=== PATIENT | female | born 1945 | race Caucasian/White ===

== ENCOUNTER 2017-03-30 05:02 | Emergency (ER) | payer OTHER, MEDICARE ==
[~2017-03-30] VITALS: Ht 152.4 cm; Wt 58.5 kg
[2017-03-30 05:20] VITALS: BP 134/83
--- NOTE | 2017-03-30 06:27 | ED GENERAL ADULT ---
History of Present Illness General Chief Complaint: General Adult Stated Complaint: PER PT ?GAS PAINS Source: patient Exam Limitations: no limitations Vital Signs & Intake/Output Vital Signs & Intake/Output Vital Signs Date Time Temp Pulse Resp B/P B/P Pulse O2 O2 Flow FiO2 Mean Ox Delivery Rate 03/30 0633 97 Room Air 03/30 0520 97.9 94 18 134/83 95 Room Air Allergies Coded Allergies: latex (Intermediate, HIVES 03/30/17) Uncoded Allergies: DEMORAL (Intermediate, LOW BP 03/30/17) NARCOTICS (Intermediate, N/V 03/30/17) Allergy Other NONE Med Allergies DEMEROL,VERSED, TOPICAL BENZICAINE Triage Note: PT FROM HOME C/O GAS PAINS?/GERD ACTING UP PER PT. PT STATES AROUND 1700 SHE ATE DINNER AND THEN FELT RIGHT FLANK PAIN THAT IS INTERMITTENT AND NON RADIATING. PT DENIES N/V, ARM NUMBNESS/TINGLING, JAW OR BACK PAIN. PTS VSS. AFEBRILE IN TRIAGE. PT STATES RIGHT SHOULDER PAIN UNKNOWN IF ASSOCIATED WITH FLANK PAIN OR PREVIOUS ROTATOR CUFF SURGERY. PT IN NO ACUTE DISTRESS IN TRIAGE. Triage Nurses Notes Reviewed? yes Onset: Gradual Duration: day(s): Timing: recent history Injury Environment: home Severity: moderate Modifying Factors: Improves With: rest. HPI: 71 yo woman in prior good health presents with right flank pain, mild nausea, no dysuria, fever, chills, chest pain. Her symptoms began yesterday at approximately 5pm. "I take a deep breath and it hurts." She notes chronic shoulder pain. She is otherwise well. (Светлана JOSHI,Maycol Granado) Past History Travel History Traveled to [place] past 21 day No Medical History Any Pertinent Medical History? see below for history Neurological: NONE EENT: NONE Cardiovascular: NONE Respiratory: NONE Gastrointestinal: NONE Hepatic: NONE Renal: NONE Musculoskeletal: NONE Psychiatric: NONE Endocrine: NONE Surgical History Surgical History: none Psychosocial History What is your primary language Korean Tobacco Use: Quit >30 days ago Family History Hx Contributory? No (Светлана JOSHI,Maycol Granado) Review of Systems Review of Systems Constitutional: Reports: no symptoms. EENTM: Reports: no symptoms. Respiratory: Reports: no symptoms. Cardiovascular: Reports: no symptoms. GI: Reports: no symptoms. Genitourinary: Reports: no symptoms. Musculoskeletal: Reports: no symptoms. Skin: Reports: no symptoms. Neurological/Psychological: Reports: no symptoms. Hematologic/Endocrine: Reports: no symptoms. Immunologic/Allergic: Reports: no symptoms. All Other Systems: Reviewed and Negative (Светлана JOSHI,Maycol Granado) Physical Exam Physical Exam General Appearance: well developed/nourished, mild distress Head: atraumatic, normal appearance Eyes: Bilateral: normal appearance. Ears, Nose, Throat: normal pharynx, normal ENT inspection Neck: normal inspection, supple, full range of motion Respiratory: normal breath sounds, chest non-tender, no respiratory distress, quiet respiration, lungs clear Cardiovascular: regular rate/rhythm Gastrointestinal: normal bowel sounds, soft, non-tender Back: normal inspection, normal range of motion Extremities: normal inspection, normal capillary refill Neurologic/Psych: no motor/sensory deficits, awake, alert, oriented x 3 Skin: intact, normal color, warm/dry Core Measures ACS in differential dx? No CVA/TIA Diagnosis: No Sepsis Present: No Sepsis Focused Exam Completed? No (Светлана JOSHI,Maycol Granado) Progress Differential Diagnoses I considered the following diagnoses in my evaluation of the patient: \\ kidney stones, renal colic, gastroenteritis vs other. Plan of Care: Orders Procedure Date/time Status CULTURE,URINE 03/30 0645 Active URINALYSIS 03/30 0645 Active RAPID VIRAL INFLUENZA A 03/30 0507 Complete TROPONIN LEVEL 03/30 0506 Complete LIPASE 03/30 0506 Complete HEPATIC FUNCTION PANEL 03/30 0506 Complete CBC WITHOUT DIFFERENTIAL 03/30 0506 Complete BASIC METABOLIC PANEL 03/30 0506 Complete AMYLASE 03/30 0506 Complete EKG 03/30 0506 Active Laboratory Tests 03/30/17 0630: Anion Gap 15, Estimated GFR > 60, BUN/Creatinine Ratio 31.7 H, Glucose 115 H, Calcium 9.8, Total Bilirubin 0.5, Direct Bilirubin 0.2, AST 25, ALT 25, Alkaline Phosphatase 94, Troponin I < 0.01, Total Protein 8.2, Albumin 4.4, Amylase 87, Lipase 130, CBC w Diff NO MAN DIFF REQ, RBC 4.51, MCV 87.5, MCH 29.6, MCHC 33.9, RDW 13.1, MPV 6.9 L, Gran % 76.6 H, Lymphocytes % 15.0 L, Monocytes % 7.6, Eosinophils % 0.5, Basophils % 0.3, Absolute Granulocytes 8.7 H, Absolute Lymphocytes 1.7, Absolute Monocytes 0.9 H, Absolute Eosinophils 0.1, Absolute Basophils 0 Microbiology 03/30 644 URINE ROUT: Urine Culture - ORD 03/30 629 NASOPHARYN: Influenza Virus A & B Rapid Smear - COMP Diagnostic Imaging: Viewed by Me: Radiology Read, CT Scan. Discussed w/RAD: Radiology Read, CT Scan. Initial ED EKG: non specific st changes. ...nsr Hand-Off Endorsed To: Darío Chinchilla DO Endorsed Time: 0700 Pending: CT, labs, Xray (Светлана JOSHI,Maycol Granado) Departure Departure Disposition: STILL A PATIENT Condition: Stable Clinical Impression Primary Impression: Flank pain Referrals: Edwardo JOSHI,Jovany Perez (PCP/Family) Departure Forms: Customer Survey General Discharge Information (Светлана JOSHI,Maycol Granado) Departure Comments 03/30/17 71-year-old female signed out to me by Dr. Sotomayor. She had a sudden onset of right-sided flank pain. Her pain is much improved now. CT scan shows no acute findings. She does have a left adrenal density. This was related to her and she is aware of the fact that she needs to follow this up with her primary care doctor. Chest x-ray shows left-sided atelectasis. Labs are essentially unremarkable. Urinalysis is pending. (Darío Chinchilla DO) Critical Care Note Critical Care Note Critical Care Time: non-applicable (Светлана JOSHI,Maycol Granado)
[2017-03-30 06:37] LABS: ABSOLUTE BASOPHIL COUNT 0 /CUMM (0.0-0.2); ABSOLUTE EOSINOPHIL COUNT 0.1 /CUMM (0.0-0.7); ABSOLUTE GRANULOCYTE CT 8.7 /CUMM (1.4-6.5); ABSOLUTE LYMPH COUNT 1.7 /CUMM (1.2-3.4); ABSOLUTE MONOCYTE COUNT 0.9 /CUMM (0.10-0.60); BASOPHIL % 0.3 % (0.0-2.0); EOSINOPHIL % 0.5 % (0-5); GRANULOCYTE % 76.6 % (42.2-75.2); HEMATOCRIT 39.4 % (37-47); MEAN CORPUSCULAR HGB 29.6 PG (27.0-31.0); MEAN CORPUSCULAR HGB CONC 33.9 G/DL (33.0-37.0); MEAN CORPUSCULAR VOLUME 87.5 FL (81.0-99.0); MEAN PLATELET VOLUME 6.9 FL (7.4-10.4); PLATELET COUNT 343 /CUMM (130-400); RBC DISTRIBUTION WIDTH 13.1 % (11.5-14.5); RED BLOOD CELL CT 4.51 /CUMM (4.20-5.40); WHITE BLOOD CELL COUNT 11.3 /CUMM (4.8-10.8)
--- NOTE | 2017-03-30 07:00 | CT SCAN REPORT ---
EXAMINATION: CT ABDOMEN AND PELVIS WITHOUT CONTRAST CLINICAL INFORMATION: Right flank pain COMPARISON: None TECHNIQUE: Multidetector volumetric imaging was performed from the superior aspect of the liver through the pubic symphysis. Sagittal and coronal reformatted images were obtained on the technologist's workstation. DLP: 292 mGy-cm FINDINGS: LUNG BASES: The visualized lung bases are unremarkable. LIVER, GALLBLADDER, AND BILIARY TREE: The liver is normal in size, shape, and attenuation. No focal hepatic lesion or biliary ductal dilatation is present. The gallbladder is unremarkable with no evidence of radiopaque gallstones, gallbladder wall thickening, or obvious pericholecystic inflammatory changes. PANCREAS: Unremarkable. SPLEEN: Unremarkable. ADRENAL GLANDS: The right adrenal gland is unremarkable. There is a nodule in the left adrenal gland measuring 1.2 cm. This does not meet criteria for a lipid rich adenoma on this study. KIDNEYS AND URETERS: The kidneys are normal in size, shape, and attenuation. No hydronephrosis, hydroureter, or calculi seen. No perinephric stranding. BLADDER: Unremarkable. GASTROINTESTINAL TRACT: The stomach is unremarkable. The small bowel is normal in caliber. No obstruction. No colonic wall thickening or inflammatory changes. The appendix is not definitively seen, but no inflammatory changes are seen at the cecum. Mild colonic stool burden. No free air or free fluid. ABDOMINAL WALL: No significant hernia is appreciated. LYMPH NODES: Normal. VASCULAR: Normal caliber aorta with mild atherosclerotic calcifications. PELVIC VISCERA: The uterus and adnexa are unremarkable. OSSEOUS STRUCTURES: No acute or suspicious osseous abnormality. Mild multilevel degenerative changes of the spine. IMPRESSION: No acute finding of the abdomen or pelvis. No hydronephrosis or nephrolithiasis. No inflammatory changes. Mild colonic stool burden. 1.2 cm left adrenal gland nodule which is indeterminate on this study. Recommend nonemergent adrenal protocol CT to further evaluate.
--- NOTE | 2017-03-30 07:17 | RADIOLOGY REPORT ---
EXAMINATION: XR PORTABLE CHEST CLINICAL INFORMATION: Dyspnea COMPARISON: None TECHNIQUE: Portable frontal view of the chest was obtained. FINDINGS: Hypoinflation with left basilar atelectasis. No consolidation, edema, or definite effusion. Normal cardiomediastinal silhouette. IMPRESSION: Left basilar atelectasis. Otherwise unremarkable.
== END 2017-03-30 08:56 ==
LOC: ERH 05:02
PROVIDERS: Pediatrics
DX: R10.9 Unspecified abdominal pain (principal)
CPT/HCPCS: 71045; 74176; 81001; 87086; 87804; 87804-59; 93005; 93010; 96374; 96375; J0131; J1885